=== PATIENT | male | born 1990 | race Caucasian/White ===

== ENCOUNTER 2023-06-12 15:18 | Outpatient (REF) | payer OTHER, SELFPAY ==
[2023-06-12 16:28] LABS: Influenza Virus A Antigen Negative; SARS-CoV-2 Ag NEGATIVE (NEGATIVE)
[2023-06-12 16:29] LABS: Influenza Virus B Antigen Negative; Internal Control Within Normal Limits
[2023-06-13 16:14] LABS: SARS-CoV-2 NAA NOT DETECTED (NOT DETECTE)
== END 2023-06-12 15:19 | disposition home or self-care (01) ==
LOC: LAB 15:18
PROVIDERS: PCP Family Medicine; Visit Provider Family Medicine
DX: J20.9 Acute bronchitis, unspecified (principal)
CPT/HCPCS: 87635; 87804; 87811

== ENCOUNTER 2024-06-19 12:44 | Emergency (ER) | payer OTHER, SELFPAY ==
[2024-06-19 12:50] VITALS: BP 134/88; PULSE 102; TEMP 36.8; O2SAT 97; BMI 35.9
--- NOTE | 2024-06-19 13:21 | ED_ITS ---
HPI HPI - General Adult General Chief complaint: Urogenital-Male Stated complaint: POST VASECTOMY ISSUE Time Seen by Provider: 06/19/24 12:50 Source: patient Mode of arrival: walk-in Limitations: no limitations History of Present Illness HPI narrative: Patient underwent vasectomy yesterday and comes in today because his scrotum is very bruised looking and quite swollen. He is still able to void spontaneously. He denies any significant pain. Related Data Home Medications ?Medication ?Instructions ?Recorded ?Confirmed No Known Home Medications 06/19/24 06/19/24 Allergies Allergy/AdvReac Type Severity Reaction Status Date / Time No Known Drug Allergies Allergy Verified 06/19/24 12:50 Opioid HPI Opioid Management Most Recent Opioid Data: Last Pain Scale 3 06/19/24 12:58 06/19/24 Review of Systems ROS Narrative All other systems are reviewed and negative other than what is mentioned in the HPI. PFSH PFS Social History Little interest or pleasure in doing things: not at all Feeling down, depressed, or hopeless: not at all Exam Narrative Exam Narrative: Afebrile and stable vital signs. Nondistressed. Focused physical examination is carried out patient has some bruising over the suprapubic region. The scrotum is tensely distended with generalized ecchymosis. The tip of the penis is visible although most of the glans is better in the skin of the shaft due to swelling. There is no drainage from his incision sites. Constitutional Vital Signs, click to edit/add: Last Vital Signs Temp 98.3 F 06/19/24 12:50 Pulse 102 H 06/19/24 12:50 Resp 20 06/19/24 12:50 BP 134/88 06/19/24 12:50 Pulse Ox 97 06/19/24 12:50 O2 Del Method Room Air 06/19/24 12:50 Course Vital Signs Vital signs: Vital Signs Temperature 98.3 F 06/19/24 12:50 Pulse Rate 102 H 06/19/24 12:50 Respiratory Rate 20 06/19/24 12:50 Blood Pressure 134/88 06/19/24 12:50 Pulse Oximetry 97 06/19/24 12:50 Oxygen Delivery Method Room Air 06/19/24 12:50 Temperature 98.3 F 06/19/24 12:50 Pulse Rate 102 H 06/19/24 12:50 Respiratory Rate 20 06/19/24 12:50 Blood Pressure 134/88 06/19/24 12:50 Pulse Oximetry 97 06/19/24 12:50 Oxygen Delivery Method Room Air 06/19/24 12:50 Medical Decision Making MDM Narrative Medical decision making narrative: Patient's findings are discussed with Dr. Partida and the plan is to treat this conservatively with elevation and ice. He is to avoid nonsteroidals and an appointment has been made for him to see Dr. Garcia on Saturday at 9:40 AM. He is to return anytime for worsening symptoms Discharge Plan Discharge Chief Complaint: Urogenital-Male Clinical Impression: Hematoma of scrotum Patient Disposition: Home, Self-Care Time of Disposition Decision: 14:39 Condition: Good Mode of Transportation: Private Vehicle Prescriptions / Home Meds: No Action No Known Home Medications Print Language: [place] Instructions: Hematoma (ED) Additional Instructions: Apply ice pack to affected area for 10 to 15 minutes several times a day. Continue wearing your scrotal support. Follow-up with Dr. Garcia in his [place] office on Thursday 06/22 at 9:40 AM. Tylenol for pain. Do not take Aleve or ibuprofen. Return anytime for worsening symptoms. Referrals: Pascual Lima MD [Primary Care Provider] - 1 week
[2024-06-19 14:44] VITALS: PULSE 75; O2SAT 99
== END 2024-06-19 14:45 | disposition home or self-care (01) ==
PROVIDERS: Emergency Provider Emergency Medicine; PCP Family Medicine
DX: N99.840 Postprocedural hematoma of a genitourinary system organ or structure following a genitourinary system procedure (principal); Z98.52 Vasectomy status
CPT/HCPCS: 99281